=== PATIENT | male | born 1955 | race Caucasian/White ===

== ENCOUNTER 2020-09-27 22:58 | Emergency (ER) | payer MEDICARE, OTHER ==
[~2020-09-27] VITALS: Ht 177.8 cm; Wt 93.2 kg
[2020-09-27] MEDS ORDERED: IV NORMAL SALINE 1,000ML 1,000 ML IV ONE (23:15)
--- NOTE | 2020-09-27 23:17 | PHYS DOC ---
General Adult EDM: Chief Complaint: CHEST PAIN HPI: HPI: Patient is a 65-year-old male that comes into the emergency department for flushing of the face, fatigue, "not feeling himself ", high blood pressure. Patient was at his house tonight eating dinner with his when he felt warm and felt flushing in his face as well as feeling like he did not "feel himself ". The patient was afraid that he might be having a heart attack or stroke. The patient has had friends recently that have had heart attacks or strokes, and he want to make sure that he was not having one so this is why he came to the emergency department with his today. He has had medical procedures done recently in the past 2 weeks he was preparing for chemoradiation of his face for skin cancer and he reacted negatively to the ointment that was being applied to his face which was given a dose of prednisone and a Z-Mau to help control swelling. He also had a tooth extraction for which she was given antibiotic and pain medication. Patient has a history of hypertension which is well controlled with medication and lifestyle changes. Patient has never had a stroke or CAD previously. Patient has no chest pain no shortness of breath, no diaphoresis, no radiating pain, no abdominal pain, no neurological changes, no change in mentation. The patient did take a propanolol before he did go emergency department he said that that has made him feel better already. He had recorded high blood pressures at his house after he took this 5 blood pressure readings in a row which went up about 5 systolic each time he did take them. Patient does think that he could be having a panic attack but wanted to make sure that he was not having a panic attack so that is why he came into the ER today. As well patient did have 2 old fashions today with his dinner. Review of Systems: Review of Systems: Constitutional: Denies fever or chills Eyes: Denies change in visual acuity HENT: Denies nasal congestion or sore throat Respiratory: Denies cough or shortness of breath Cardiovascular: Denies chest pain or edema GI: Denies abdominal pain, nausea, vomiting, bloody stools or diarrhea : Denies dysuria Musculoskeletal: Denies back pain or joint pain Integument: Denies rash Neurologic: Denies headache, focal weakness or sensory changes Endocrine: Denies polyuria or polydipsia Lymphatic: Denies swollen glands Psychiatric: Denies depression or anxiety Current Medications: Current Meds: Current Medications Medications (Trade) Dose Ordered Sig/Parker Start Time Stop Time Status Last Admin Dose Admin Sodium Chloride 1,000 ml @ 1,000 mls/hr 1X ONCE 09/27/20 23:15 09/28/20 00:14 UNV Physical Exam: PE: Constitutional: Well developed, well nourished, no acute distress, non-toxic appearance HENT: Normocephalic, atraumatic Eyes: PERRL, EOMI, conjunctiva normal, no discharge Neck: Normal range of motion, no tenderness, supple Lungs & Thorax: No respiratory distress, equal chest rise and fall Abdomen: Soft, no tenderness Skin: Warm, dry, no erythema, no rash Back: No tenderness, no CVA tenderness Extremities: No tenderness, ROM intact, no edema Neurologic: Alert and oriented X 3, normal motor function, normal sensory function, no focal deficits noted Psychologic: Affect normal, judgment normal Cardiac: Equal pulses bilaterally 2 out of 4, regular rate and rhythm no murmurs EKG: EKG: @2307 NSR at 81bpm, NO ST elevation, QRS 74ms, QT/QTc 324/377ms Radiology/Procedures: Radiology/Procedures: [] Heart Score: Risk Factors: Risk Factors: DM, Current or recent (<one month) smoker, HTN, HLP, family history of CAD, obesity. Risk Scores: Score 0 - 3: 2.5% MACE over next 6 weeks - Discharge Home Score 4 - 6: 20.3% MACE over next 6 weeks - Admit for Clinical Observation Score 7 - 10: 72.7% MACE over next 6 weeks - Early Invasive Strategies Course & Med Decision Making: Course & Med Decision Making Pertinent Labs and Imaging studies reviewed. (See chart for details) [] Dragon Disclaimer: Dragon Disclaimer: This electronic medical record was generated, in whole or in part, using a voice recognition dictation system. Departure Departure: Impression: Primary Impression: Palpitations Disposition: HOME / SELF CARE / HOMELESS Condition: STABLE Referrals: YESSENIA MAXWELL DO (PCP) DAVID LOZANO MD Patient Instructions: Anxiety and Panic Attacks, [id number], Palpitations, [id number] MATI NASCIMENTO DO Sep 27, 2020 23:17
[2020-09-28 00:06] LABS: BASO # 0.1 x10^3/uL (0.0-0.2); BASO % 1 % (0-3); EOS # 0.1 x10^3/uL (0.0-0.7); EOS % 0 % (0-3); HEMATOCRIT 42.2 % (39.0-53.0); HEMOGLOBIN 14.7 g/dL (13.0-17.5); LYMPH # 4.5 x10^3/uL (1.0-4.8); LYMPH % 29 % (24-48); MEAN CORPUSCULAR HEMOGLOBIN 33 pg (25-35); MEAN CORPUSCULAR HGB CONC 35 g/dL (31-37); MEAN CORPUSCULAR VOLUME 95 fL (79-100); MONO # 1.1 x10^3/uL (0.0-1.1); MONO % 7 % (0-9); NEUT # 9.9 x10^3uL (1.8-7.7); NEUT % 63 % (31-73); PLATELET COUNT 227 x10^3/uL (140-400); RED BLOOD COUNT 4.44 x10^6/uL (4.30-5.70); RED CELL DISTRIBUTION WIDTH 12.3 % (11.5-14.5); WHITE BLOOD COUNT 15.6 x10^3/uL (4.0-11.0)
[2020-09-28 00:09] LABS: CALCIUM 9.2 mg/dL (8.5-10.1); GFR 74.5; POTASSIUM 4.2 mmol/L (3.5-5.1)
[2020-09-28 00:25] LABS: ALBUMIN 4.6 g/dL (3.4-5.0); ALBUMIN/GLOBULIN RATIO 1.3 (1.0-1.7); MAGNESIUM 2.1 mg/dL (1.8-2.4); TOTAL BILIRUBIN 0.4 mg/dL (0.2-1.0); TOTAL PROTEIN 8.1 g/dL (6.4-8.2)
[2020-09-28 00:45] VITALS: BP 134/83
[2020-09-28 01:26] LABS: % BANDS 1 % (0-9); % EOS 1 % (0-5); % LYMPHS 28 % (24-48); % MONOS 7 % (0-10); % SEGS 63 % (35-66); PLT ESTIMATE ADEQUATE (ADEQUATE)
--- NOTE | 2020-09-28 03:14 | EKG ---
[address] [address] Test Date: 2020-09-27 Test Time: 23:07:09 Pat Name: KRISTY SCHMIDT Department: Room: Gender: M Service Station Manager: WARNER : 1955 Requested By: MATI NASCIMENTO Order Number: [id number] Reading MD: Measurements Intervals [place] Rate: 81 P: 43 [place]: 186 QRS: 36 QRSD: 74 T: 60 QT: 324 QTc: 377 Interpretive Statements SINUS RHYTHM NORMAL ECG RI6.02 No previous ECG available for comparison
== END 2020-09-28 00:50 | disposition home or self-care (01) ==
LOC: ER 22:58
DX: R00.2 Palpitations (principal); I10 Essential (primary) hypertension
CPT/HCPCS: 36415; 80053; 82553; 83690; 83735; 83880; 84439; 84443; 84481; 84484; 85007; 85025; 93005; 96360; 99284; J7030